=== PATIENT | female | born 1975 | race Caucasian/White ===

== ENCOUNTER → 2016-11-17 | Outpatient (CLI) | payer BC ==
--- NOTE | 2016-11-21 08:12 | MM ---
Reason for exam: screening (asymptomatic). Last mammogram was performed 1 year and 7 months ago. History: Patient had first child at age 29. Family history of breast cancer in maternal grandmother at age 65 and breast cancer in maternal aunt at age 50. Taking hormonal contraceptives for 25 years. Physical Findings: A clinical breast exam by your physician is recommended on an annual basis and results should be correlated with mammographic findings. MG 3D Screening Mammo W/Cad Bilateral CC and MLO view(s) were taken. Prior study comparison: April 16, 2015, bilateral MG 3d screening mammo w/cad. The breast tissue is heterogeneously dense. This may lower the sensitivity of mammography. No significant changes when compared with prior studies. ASSESSMENT: Negative, BI-RAD 1 RECOMMENDATION: Routine screening mammogram of both breasts in 1 year.
== END | disposition home or self-care (01) ==
LOC: RADMAMWWP 15:44
PROVIDERS: ATTEND Obstetrics & Gynecology
DX: Z12.31 Encounter for screening mammogram for malignant neoplasm of breast (principal)
CPT/HCPCS: 77063; G0202

== ENCOUNTER → 2017-11-29 | Outpatient (CLI) | payer BC | END | disposition home or self-care (01) | LOC: LABWHC1 15:20 | PROVIDERS: ATTEND Obstetrics & Gynecology | DX: R53.83 Other fatigue (principal); R68.82 Decreased libido; G47.9 Sleep disorder, unspecified | CPT/HCPCS: 36415; 82670; 83001; 84403 ==

== ENCOUNTER → 2017-12-03 | Outpatient (CLI) | payer BC ==
--- NOTE | 2017-12-03 13:48 | MM ---
Reason for exam: screening (asymptomatic). Last mammogram was performed 1 year and 1 month ago. History: Patient had first child at age 29. Family history of breast cancer in maternal grandmother at age 65 and breast cancer in maternal aunt at age 50. Taking hormonal contraceptives for 25 years. Physical Findings: A clinical breast exam by your physician is recommended on an annual basis and results should be correlated with mammographic findings. MG 3D Screening Mammo W/Cad Bilateral CC and MLO view(s) were taken. Prior study comparison: November 17, 2016, bilateral MG 3d screening mammo w/cad. April 16, 2015, bilateral MG 3d screening mammo w/cad. The breast tissue is heterogeneously dense. This may lower the sensitivity of mammography. Stable calcifications. New nodule upper outer left breast 9.2cm from nipple. This finding is changed when compared with previous exams. ASSESSMENT: Incomplete: need additional imaging evaluation, BI-RAD 0 RECOMMENDATION: Ultrasound of the left breast. [facility] will attempt to contact patient to return for ultrasound.
== END ==
LOC: RADMAMWWP 09:05
PROVIDERS: ATTEND Obstetrics & Gynecology
DX: Z12.31 Encounter for screening mammogram for malignant neoplasm of breast (principal)
CPT/HCPCS: 77063; 77067

== ENCOUNTER → 2017-12-05 | Outpatient (CLI) | payer BC ==
--- NOTE | 2017-12-06 09:57 | USB ---
Reason for exam: additional evaluation requested from abnormal screening. History: Patient had first child at age 29. Family history of breast cancer in maternal grandmother at age 65 and breast cancer in maternal aunt at age 50. Taking hormonal contraceptives for 25 years. Physical Findings: Nurse Summary: bilateral nodularity, all soft, movable (nurse ts). US Breast Workup LT Left complete breast ultrasound includes all four quadrants, the retroareolar region and axilla. Finding demonstrates a 1.2 x 0.9 x 1.2cm oval, cystic lesion at 2 o'clock and a 1.0 x 0.5 x 0.9cm hypoechoic lesion at 11 o'clock for which a biopsy is recommended. These results were verbally communicated with the patient and result sheet given to the patient on 12/05/17. ASSESSMENT: Suspicious, BI-RAD 4 RECOMMENDATION: Ultrasound core biopsy of the left breast. Called Dr. Cardoso with mammographic findings and has scheduled an appointment for the patient for 12/12/17 at 2:[address] Lao. PRELIMINARY REPORT CALLED AND FAXED TO DR. LAO ON 12/06/17.
== END | disposition home or self-care (01) ==
LOC: RADUSWWP 07:03
PROVIDERS: ATTEND Obstetrics & Gynecology
DX: R92.8 Other abnormal and inconclusive findings on diagnostic imaging of breast (principal)

== ENCOUNTER → 2019-02-14 | Outpatient (CLI) | payer BC ==
--- NOTE | 2019-02-17 08:19 | MM ---
Reason for exam: additional evaluation requested from prior study. Last mammogram was performed 1 year and 2 months ago. History: Patient had first child at age 29. Family history of breast cancer in maternal grandmother at age 65 and breast cancer in maternal aunt at age 50. Ultrasound-guided core biopsy of the left breast, December 2017. Taking hormonal contraceptives for 25 years. Physical Findings: Nurse did not find any significant physical abnormalities on exam. MG 3D Diag Mammo W/Cad [facility] Bilateral CC and MLO view(s) were taken. Prior study comparison: December 03, 2017, bilateral MG 3d screening mammo w/cad. November 17, 2016, bilateral MG 3d screening mammo w/cad. The breast tissue is heterogeneously dense. This may lower the sensitivity of mammography. Previous mammotome biopsy in the left breast. There is no discrete abnormality. These results were verbally communicated with the patient and result sheet given to the patient on 02/14/19. ASSESSMENT: Benign, BI-RAD 2 RECOMMENDATION: Routine screening mammogram of both breasts in 1 year.
--- NOTE | 2019-02-17 08:23 | USB ---
Reason for exam: additional evaluation requested from prior study. History: Patient had first child at age 29. Family history of breast cancer in maternal grandmother at age 65 and breast cancer in maternal aunt at age 50. Ultrasound-guided core biopsy of the left breast, December 2017. Taking hormonal contraceptives for 25 years. US Breast LT Left complete breast ultrasound includes all four quadrants, the retroareolar region and axilla. Finding demonstrates a 0.3 x 0.4 x 0.2cm oval, cystic, complex lesion at 12 o'clock, a 0.5 x 0.7 x 0.4cm oval, cystic lesion at 2 o'clock, a 0.6 x 0.6 x 0.5cm oval, cystic lesion at 3 o'clock, a 0.4 x 0.6 x 0.4cm oval, cystic, complex cluster at 6 o'clock, a 0.5 x 0.4 x 0.3cm ova, cystic lesion at 11:30 and axilla nodes with the largest measuring 2.0 x 1.7 x 1.1cm. Overall fibrocystic change. These results were verbally communicated with the patient and result sheet given to the patient on 02/14/19. ASSESSMENT: Benign, BI-RAD 2 RECOMMENDATION: Routine screening mammogram of both breasts in 1 year.
== END | disposition home or self-care (01) ==
LOC: RADMAMWWP 13:28
PROVIDERS: ATTEND Obstetrics & Gynecology
DX: R92.8 Other abnormal and inconclusive findings on diagnostic imaging of breast (principal)
CPT/HCPCS: 77062; 77066

== ENCOUNTER → 2020-04-22 | Outpatient (CLI) | payer BC ==
[2020-04-22 23:29] LABS: Estradiol 29.7 pg/mL; Follicle Stimulating Hormone 45.1 mIU/mL
--- NOTE | 2020-04-26 11:16 | MM ---
Reason for exam: screening (asymptomatic). Last mammogram was performed 1 year and 2 months ago. History: Patient had first child at age 29. Family history of breast cancer in maternal grandmother at age 65 and breast cancer in maternal aunt at age 50. Ultrasound-guided core biopsy of the left breast, December 2017. Taking hormonal contraceptives for 25 years. Physical Findings: A clinical breast exam by your physician is recommended on an annual basis and results should be correlated with mammographic findings. MG 3D Screening Mammo W/Cad Bilateral CC and MLO view(s) were taken. Prior study comparison: February 14, 2019, bilateral MG 3d diag mammo w/cad [facility]. December 03, 2017, bilateral MG 3d screening mammo w/cad. The breast tissue is heterogeneously dense. This may lower the sensitivity of mammography. Previous mammotome biopsy in the left breast. No significant changes when compared with prior studies. ASSESSMENT: Benign, BI-RAD 2 RECOMMENDATION: Routine screening mammogram of both breasts in 1 year.
== END ==
LOC: RADMAMWWP 08:42
PROVIDERS: ATTEND Obstetrics & Gynecology
DX: Z12.31 Encounter for screening mammogram for malignant neoplasm of breast (principal); Z80.3 Family history of malignant neoplasm of breast
CPT/HCPCS: 36415; 77063; 77067; 82670; 83001; 84144; 84403

== ENCOUNTER → 2020-06-24 | Outpatient (CLI) | payer BC ==
--- NOTE | 2020-06-24 07:40 | CT ---
EXAMINATION TYPE: CT sinus wo con DATE OF EXAM: 06/24/2020 COMPARISON: None HISTORY: Chronic sinusitis CT DLP: [address] of the paranasal sinuses was performed in the axial and coronal planes. Bone and soft tissue settings are submitted. The paranasal sinuses demonstrate normal aeration and development. The paranasal sinuses are free of mucosal thickening or air fluid level. Changes of right-sided medi al maxillary antrectomy. The osteal meatal units are patent bilaterally. The nasal septum is deviated from right to left. No bony destructive changes are seen within the field of view. IMPRESSION: 1. Changes of right-sided medial maxillary antrectomy. 2.The nasal septum is deviated from right to left.
== END | disposition home or self-care (01) ==
LOC: RADCTMAIN 07:15
PROVIDERS: ATTEND Otolaryngology
DX: J32.9 Chronic sinusitis, unspecified (principal); J34.2 Deviated nasal septum
CPT/HCPCS: 70486

== ENCOUNTER 2021-04-13 07:53 | Day surgery (SDC) | payer BC ==
[2021-04-11 12:08] VITALS: BMI 34.9
[~2021-04-13 07:53] MED LIST: DEXAMETHASONE SOD PHOSPHATE 4 MG/ML 1 ML VIAL IV PRN; FAMOTIDINE 20 MG/2 ML VIAL IV PRN; ONDANSETRON 4 MG/2 ML VIAL IVP PRN; OXYMETAZOLINE 0.05% NASL SPRAY 1 SPRAY BOTTLE EA NOSTRIL PRN; metroNIDAZOLE-NS PMX 500 MG in SALINE 1 100ML.BAG IVPB PRN
[2021-04-13] MEDS ORDERED: MIDAZOLAM 2 MG/2 ML VIAL IV PRN (07:55)
[2021-04-13] MEDS ORDERED: LIDOCAINE 1% (10MG/ML) FOR IV START INTRADERMA PRN (07:55)
[2021-04-13] MEDS ORDERED: LACTATED RINGERS 1,000 ML IV SCH (07:55)
[2021-04-13] MEDS ORDERED: HYDROmorphone 0.5 MG/0.5 ML SYRINGE IVP PRN (07:55)
[2021-04-13] MEDS ORDERED: DEXAMETHASONE SOD PHOSPHATE 4 MG/ML 1 ML VIAL IV ONE (07:55)
[2021-04-13] MEDS ORDERED: ONDANSETRON 4 MG/2 ML VIAL IVP ONE (07:55)
[2021-04-13] MEDS ORDERED: MIDAZOLAM 2 MG/2 ML VIAL ONE (09:52)
[2021-04-13] MEDS ORDERED: LIDOCAINE 1% INJ 10MG/ML (20 ML MDV) ONE (09:52)
[2021-04-13] MEDS ORDERED: SUCCINYLCHOLINE CHLORIDE 100 MG/5 ML SYR IV ONE (09:52)
[2021-04-13] MEDS ORDERED: PROPOFOL 10 MG/ML 20 ML VIAL IV ONE (09:52)
[2021-04-13] MEDS ORDERED: fentaNYL (PF) 50 MCG/ML 2 ML AMP ONE (09:52)
[2021-04-13] MEDS ORDERED: LIDOCAINE 2%-EPI 1:100,000 20 ML VIAL SUBMUCOSAL ONE (10:07)
[2021-04-13] MEDS ORDERED: BACITRACIN ZINC 500 UNIT/GM OINT 28.4 GM TUBE TOPICAL ONE (10:20)
--- NOTE | 2021-04-13 10:32 | P.OP ---
Date of Procedure: 04/13/21 Preoperative Diagnosis: Deviated nasal septum Inferior turbinate hypertrophy Postoperative Diagnosis: Same Procedure(s) Performed: Septoplasty Outfracture and submucous resection of the inferior turbinates Anesthesia: GURWINDERA Surgeon: Dae Julian Estimated Blood Loss (ml): 2 Pathology: other (Nasal septal bone and cartilage) Condition: stable Disposition: PACU Indications for Procedure: Is a 45-year-old white female who has difficulties with chronic nasal airway obstruction and congestion Operative Findings: Nasal septum deviated the right anteriorly to the left posteriorly with inferior turbinate hypertrophy bilateral Description of Procedure: DESCRIPTION OF PROCEDURE: The patient was brought to the operative suite, placed in the supine position. The patient underwent induction of general anesthesia with oral endotracheal intubation without difficulty. The patient was prepped and draped in the usual aseptic fashion. 1% lidocaine with 1:100,000 epinephrine was infused submucosally on both sides of the nasal septum. While this was taking vasoconstrictive effect, the inferior turbinates were infractured with a Bandera elevator. Partial submucous resection of the inferior turbinates was performed with Coblation device ablating a portion of the submucosal soft tissue. The inferior turbinates were then outfractured with a Bandera elevator. A left hemitransfixion incision was then made through the mucoperichondrial. Mucoperiosteal flap on the left elevated. Bony cartilaginous junction was disarticulated and mucoperiosteal flap on the right was elevated. Bony nasoseptal deformity were removed with Korin forceps and an inferior cartilaginous strip was removed, leaving a full 1.5 cm caudal strut. Note that there was some cartilage and bone missing from previous septoplasty. Checking intranasally, this corrected the nasal septal deformities and the hemitransfixion incision was closed with running 4-0 chromic suture. The bilateral Ortiz airway splints coated in bacitracin ointment were placed in the nasal cavities and sutured transseptally with 4-0 nylon suture. The patient was then suctioned in an orogastric fashion. The patient was allowed to emerge from general anesthesia, having tolerated the procedure well and was extubated in the operating suite, transferred to postoperative recovery area in satisfactory condition.
[2021-04-13 10:42] VITALS: TEMP 97.2
[2021-04-13 11:22] VITALS: PULSE 80
[2021-04-13 11:31] VITALS: BP 150/84; RESP 18
== END 2021-04-13 12:21 | disposition home or self-care (01) ==
LOC: OR 07:53
PROVIDERS: ATTEND Otolaryngology
DX: J34.2 Deviated nasal septum (principal); J34.3 Hypertrophy of nasal turbinates; K58.9 Irritable bowel syndrome, unspecified; K21.9 Gastro-esophageal reflux disease without esophagitis; I10 Essential (primary) hypertension; Z90.49 Acquired absence of other specified parts of digestive tract; Z98.890 Other specified postprocedural states; Z82.61 Family history of arthritis; Z80.3 Family history of malignant neoplasm of breast; Z83.79 Family history of other diseases of the digestive system; Z79.899 Other long term (current) drug therapy; Z91.09 Other allergy status, other than to drugs and biological substances
CPT/HCPCS: 81025; 88300; 30520; 30140; J2250; J1100; J0690; J2405; J2001; J3010; J0330; J2704

== ENCOUNTER → 2021-08-18 | Outpatient (CLI) | payer BC ==
--- NOTE | 2021-08-19 08:09 | MM ---
Reason for Exam: Screening (asymptomatic). Last mammogram was performed 1 year(s) and 4 month(s) ago. Patient History: Menarche at age 11. First Full-Term at age 29. Late child-bearing (after 30). Patient used Hormonal Contraceptives for 25 years. 12/2017, Ultrasound-Guided Core Biopsy on the Left side. Maternal grandmother had breast cancer, age 65. Maternal aunt had breast cancer, age 50. Last menstrual period: 06/13/2021 Risk Values: Winsome 5 year model risk: 1.7%. NCI Lifetime model risk: 14.7%. Prior Study Comparison: 12/03/2017 Bilateral Screening Mammogram, [facility]. 02/14/2019 Bilateral Diagnostic Mammogram, [facility]. 04/22/2020 Bilateral Screening Mammogram, [facility]. Tissue Density: The breast tissue is heterogeneously dense. This may lower the sensitivity of mammography. Findings: Analyzed By CAD. Mammotome biopsy clip left breast is redemonstrated. There are a few scattered benign-appearing round calcifications throughout the bilateral breasts redemonstrated. There is no suspicious group of microcalcifications or new suspicious mass in either breast. Overall Assessment: Benign, BI-RAD 2 Management: Screening Mammogram of both breasts in 1 year. A clinical breast exam by your physician is recommended on an annual basis and results should be correlated with mammographic findings. Electronically signed and approved by: Jace Sue M.D.
== END | disposition home or self-care (01) ==
LOC: RADMAMWWP 07:27
PROVIDERS: ATTEND Obstetrics & Gynecology
DX: Z12.31 Encounter for screening mammogram for malignant neoplasm of breast (principal)
CPT/HCPCS: 77063; 77067

== ENCOUNTER → 2021-10-18 | Outpatient (CLI) | payer BC ==
--- NOTE | 2021-10-18 10:58 | US ---
EXAMINATION TYPE: US abdomen complete DATE OF EXAM: 10/18/2021 COMPARISON: NONE CLINICAL HISTORY: R10.11 RUQ PAIN. RUQ pain x 4 months on and off, cholecystectomy TECHNIQUE: Multiple sonographic images of the abdomen are obtained. FINDINGS: EXAM MEASUREMENTS: Liver Length: 18.6 cm Gallbladder Wall: Surgically absent CBD: 0.8 cm Spleen: 9.5 cm Right Kidney: 10.7 x 5.0 x 4.9 cm Left Kidney: 11.1 x 5.5 x 6.5 cm PHYSICIAN ALLERGIST IMMUNOLOGIST NOTES: overlying bowel gas limits exam Pancreas: wnl Liver: difficult to penetrate Gallbladder: Surgically absent Evidence for sonographic Murillo's sign: no CBD: wnl Spleen: wnl Right Kidney: wnl Left Kidney: wnl Upper IVC: wnl Abd Aorta: wnl The intrahepatic portion of the IVC and proximal abdominal aorta are within normal limits. Common michelle e duct is unremarkable. The visualized portions of the pancreas are homogenous. The spleen is unrem arkable. Kidneys are symmetric and free of hydronephrosis. No renal lesions are seen. IMPRESSION: Hepatic steatosis.
== END | disposition home or self-care (01) ==
LOC: RADUSWWP 10:22
PROVIDERS: ATTEND Family Medicine
DX: R10.11 Right upper quadrant pain (principal)
CPT/HCPCS: 76700

== ENCOUNTER → 2021-11-10 | Outpatient (CLI) | payer BC ==
--- NOTE | 2021-11-10 09:17 | FL ---
EXAMINATION TYPE: FL UGI DATE OF EXAM: 11/10/2021 COMPARISON: NONE HISTORY: Right abdominal pain, hiatal hernia, gastroesophageal reflux. TECHNIQUE: A double contrast UGI study is performed. A total of 27 seconds of fluoroscopic time was utilized during procedure and 261 images obtained. FINDINGS: The esophagus shows normal emptying into the stomach. There is mild tertiary contractions. Moderate h iatal hernia identified. No mucosal irregularity. The stomach shows normal distensibility, peristalsis, and mucosal folds. No evidence of any mass or ulcer disease. Gastroesophageal reflux disease was present with Valsalva maneuvers to the midesophagu s. The duodenal bulb, sweep, and proximal small bowel loops are unremarkable. IMPRESSION: Moderate hiatal hernia with gastroesophageal reflux.
== END | disposition home or self-care (01) ==
LOC: RADUSWWP 08:02
PROVIDERS: ATTEND Surgery
DX: K21.9 Gastro-esophageal reflux disease without esophagitis (principal)
CPT/HCPCS: 74240

== ENCOUNTER → 2021-11-24 | Outpatient (CLI) | payer BC ==
--- NOTE | 2021-11-26 09:17 | CT ---
EXAMINATION TYPE: CT abdomen pelvis w con CT DLP: 1856.3 mGycm, Automated exposure control for dose reduction was used. DATE OF EXAM: 11/24/2021 6:18 PM COMPARISON: None CLINICAL INDICATION:Female, 46 years old with history of R10.11 RIGHT UPPER QUADRANT PAIN; RIGHT UPPE R QUADRANT PAIN TECHNIQUE: Axial CT of the abdomen and pelvis. Sagittal and coronal reformats were created on a [employer] workstation. Contrast used:100ml mL of Isovue 300 with IV Contrast, Oral contrast used: with Oral Contrast FINDINGS: LOWER CHEST: Left lower lobe calcified granuloma. ABDOMEN LIVER: Diffusely hypoattenuating parenchyma. GALLBLADDER AND BILE DUCTS: Gallbladder is surgically absent with mild intrahepatic and extra hepatic biliary dilatation likely physiologic and a postcholecystectomy change. No evidence of choledocholit hiasis. PANCREAS: Unremarkable. SPLEEN: Unremarkable. ADRENAL GLANDS: Unremarkable. KIDNEYS AND URETERS: No evidence of hydronephrosis or renal calculus. The ureters are unremarkable. PELVIS BLADDER: Unremarkable REPRODUCTIVE: Right ovarian dominant follicle measuring up to 3.0 cm. Lesion immediately unlocked the front door no pneumothorax very top R view of the inferior Visipaque intravenous contrast up consist ent ABDOMEN & PELVIS STOMACH AND BOWEL: No evidence of bowel obstruction. Moderate hiatal hernia. PERITONEUM: No evidence of pneumoperitoneum or free fluid. VASCULATURE: No evidence of aortic aneurysm. MUSCULOSKELETAL: No acute osseous abnormalities, multilevel disc degeneration changes are seen throug hout the spine worse at L5-S1 with endplate sclerosis displaced narrowing vacuum disc phenomena. LYMPH NODES: No gross evidence for lymphadenopathy. SOFT TISSUE/ABDOMINAL WALL: Small fat-containing umbilical hernia. IMPRESSION: 1. No evidence for acute abdominal process. 2. Hepatic steatosis. 3. Moderate hiatal hernia.
== END | disposition home or self-care (01) ==
LOC: RADCTMAIN 15:56
PROVIDERS: ATTEND Surgery
DX: K76.0 Fatty (change of) liver, not elsewhere classified (principal); K44.9 Diaphragmatic hernia without obstruction or gangrene; R10.11 Right upper quadrant pain
CPT/HCPCS: 74177; Q9967

== ENCOUNTER → 2023-04-23 | Outpatient (CLI) | payer BC ==
--- NOTE | 2023-04-24 09:23 | MM ---
Reason for Exam: Screening (asymptomatic). Last mammogram was performed 1 year(s) and 8 month(s) ago. Patient History: Menarche at age 11. First Full-Term at age 29. Late child-bearing (after 30). Patient used Hormonal Contraceptives for 25 years. 12/2017, Ultrasound-Guided Core Biopsy on the Left side. Maternal grandmother had breast cancer, age 65. Maternal aunt had breast cancer, age 50. Risk Values: Winsome 5 year model risk: 1.6%. NCI Lifetime model risk: 14.5%. Prior Study Comparison: 02/14/2019 Bilateral Diagnostic Mammogram, [facility]. 04/22/2020 Bilateral Screening Mammogram, [facility]. 08/18/2021 Bilateral MG 3D screening mammo w/cad, [facility]. Tissue Density: The breasts are heterogeneously dense, which may obscure small masses. Findings: Analyzed By CAD. There is no suspicious group of microcalcifications or new suspicious mass in either breast. Biopsy clip marker on the left breast again noted. Benign-appearing calcifications. Overall Assessment: Benign, BI-RAD 2 Management: Screening Mammogram of both breasts in 1 year. . Patient should continue monthly self-breast exams. A clinical breast exam by your physician is recommended on an annual basis. This exam should not preclude additional follow-up of suspicious palpable abnormalities. Note on Winsome scores and lifetime risk: 1. A Winsome score greater than 3% is considered moderate risk. If this is the case, consider specialist referral to assess eligibility for a risk reducing agent. 2. If overall lifetime risk for the development of breast cancer is 20% or higher, the patient may qualify for future screening with alternating mammogram and breast MRI. Electronically signed and approved by: Angel Rojas M.D. Radiologis
== END | disposition home or self-care (01) ==
LOC: RADMAMWWP 07:02
PROVIDERS: ATTEND Family Medicine
DX: Z12.31 Encounter for screening mammogram for malignant neoplasm of breast (principal); Z80.3 Family history of malignant neoplasm of breast
CPT/HCPCS: 77063; 77067

== ENCOUNTER → 2024-07-15 | Outpatient (CLI) | payer BC ==
--- NOTE | 2024-07-15 09:18 | MM ---
Reason for Exam: Additional evaluation requested from abnormal screening. Last screening mammogram was performed less than 1 month ago. Patient History: Menarche at age 11. First Full-Term at age 29. Late child-bearing (after 30). Postmenopausal. Patient has history of breast feeding. Patient used Hormonal Contraceptives for 25 years. 12/2017, Ultrasound-Guided Core Biopsy on the Left side. Maternal grandmother had breast cancer, age 65. Maternal aunt had breast cancer, age 50. Risk Values: Winsome 5 year model risk: 1.6%. NCI Lifetime model risk: 14.0%. Prior Study Comparison: 11/17/2016 Bilateral Screening Mammogram, [facility]. 12/03/2017 Bilateral Screening Mammogram, [facility]. 02/14/2019 Bilateral Diagnostic Mammogram, [facility]. 04/22/2020 Bilateral Screening Mammogram, [facility]. 08/18/2021 Bilateral MG 3D screening mammo w/cad, [facility]. 04/23/2023 Bilateral MG 3D screening mammo w/cad, [facility]. 07/10/2024 Bilateral MG 3D screening mammo w/cad, [facility]. Tissue Density: Right: The breasts are heterogeneously dense, which may obscure small masses. Findings: Analyzed By CAD. Persistent heterogeneous group of calcifications in the middle to posterior depth upper aspect, they appear to majority layer on true lateral view consistent with benign etiology. Overall Assessment: Benign, BI-RAD 2 Management: Screening Mammogram of both breasts in 1 year. . Results were given to the patient verbally at the time of exam. Patient should continue monthly self-breast exams. A clinical breast exam by your physician is recommended on an annual basis. This exam should not preclude additional follow-up of suspicious palpable abnormalities. Note on Winsome scores and lifetime risk: 1. A Winsome score greater than 3% is considered moderate risk. If this is the case, consider specialist referral to assess eligibility for a risk reducing agent. 2. If overall lifetime risk for the development of breast cancer is 20% or higher, the patient may qualify for future screening with alternating mammogram and breast MRI. [facility], , 07/15/2024 9:14 AM. Electronically signed and approved by: Jace Sue M.D.
== END | disposition home or self-care (01) ==
LOC: RADMAMWWP 08:21
PROVIDERS: ATTEND Family Medicine
DX: R92.8 Other abnormal and inconclusive findings on diagnostic imaging of breast (principal); R92.331 Mammographic heterogeneous density, right breast; R92.1 Mammographic calcification found on diagnostic imaging of breast; Z78.0 Asymptomatic menopausal state; Z92.0 Personal history of contraception; Z80.3 Family history of malignant neoplasm of breast
CPT/HCPCS: 77061; 77065